=== PATIENT | female | born 1975 | race Caucasian/White ===

== ENCOUNTER → 2021-04-27 | Day surgery (SDC) | payer OTHER ==
[~2021-04-27] VITALS: Ht 157.5 cm; Wt 82.5 kg
[~2021-04-27] MED LIST: DAILY VITAMIN1 EAC2 PO; LEXAPRO20 MG PO; PERCOCET 5-3251 EACH PO; PRILOSEC20 MG PO; VITAMIN B-121000 MC1 PO; ZYRTEC10 MG PO
[2021-04-27 09:21] LABS: HCG (URINE) SCREEN NEGATIVE (NEGATIVE)
== END | disposition home or self-care (01) ==
LOC: FAS 08:22
PROVIDERS: Anesthesiology
DX: M65.311 Trigger thumb, right thumb (principal); R94.31 Abnormal electrocardiogram [ECG] [EKG]; G43.909 Migraine, unspecified, not intractable, without status migrainosus; F41.9 Anxiety disorder, unspecified; F32.9 Major depressive disorder, single episode, unspecified
CPT/HCPCS: 84703; 93005; J1885; J2250; J2704; J3010; J7120